=== PATIENT | male | born 2000 | race Caucasian/White ===

== ENCOUNTER 2022-08-20 13:15 | Emergency (ER) | payer BC, SELFPAY ==
[2022-08-20 13:45] VITALS: BP 124/65; PULSE 78; RESP 15; TEMP 36.7; O2SAT 99; BMI 21.6
[2022-08-20 16:22] LABS: Urine N gonorrhoeae NOT DETECTED
[2022-08-20 16:27] LABS: Urine Chlamydia NOT DETECTED
--- NOTE | 2022-08-20 17:13 | CM.MNRNOTE ---
Pt chose not to be seen
== END 2022-08-20 17:14 | disposition left against medical advice (07) ==
PROVIDERS: Emergency Medicine; Emergency Provider Student in an Organized Health Care Education/Training Program; PCP Physician Assistant
DX: Z11.3 Encounter for screening for infections with a predominantly sexual mode of transmission (principal)
CPT/HCPCS: 87491; 87591; 99281